=== PATIENT | female | born 1990 | race Caucasian/White ===

== ENCOUNTER 2024-11-09 18:26 | Inpatient (IN) | payer MEDICAID, OTHER ==
[2024-11-09] MEDS ORDERED: IBUPROFEN 600 MG TAB PO PRN (22:15)
[2024-11-09] MEDS ORDERED: HALOPERIDOL LACTATE 5 MG/ML 1 ML VIAL IM PRN (22:15)
[2024-11-09] MEDS ORDERED: LORazepam 2 MG/ML INJ IM PRN (22:15)
[2024-11-09] MEDS ORDERED: MAGNESIUM HYDROXIDE 2,400 MG/30 ML CUP PO PRN (22:15)
[2024-11-10] MEDS: NICOTINE 14MG/24HR PATCH TRANSDERM SCH (06:43)
[2024-11-10] MEDS: NICOTINE GUM (POLACRILEX) 2 MG GUM BUCCAL PRN (08:46)
[2024-11-10 12:22] LABS: Basophils # (A) 0.03 10*3/uL (0.00-0.10); Basophils % (A) 0.5 %; HCT 35.7 % (37.2-46.3); Lymphocytes # (A) 1.47 10*3/uL (0.90-5.00); Lymphocytes % (A) 23.6 %; MCH 25.3 pg (27.0-32.0); MCHC 30.8 g/dL (32.0-37.0); MCV 82.1 fL (80.0-97.0); Mean Platelet Volume 9.2 fL (9.5-12.2); Monocytes # (A) 0.26 10*3/uL (0.20-1.00); Monocytes % (A) 4.2 %; Neutrophils # (A) 4.44 10*3/uL (1.80-7.70); Neutrophils % (A) 71.4 %; Platelet Count 377 10*3/uL (140-440); RBC 4.35 10*6/uL (4.10-5.20); RDW 15.3 % (11.5-14.5); WBC 6.22 10*3/uL (4.50-10.00)
[2024-11-10 12:42] LABS: ALT 12 U/L (4-34); AST 17 U/L (14-36); African American GFR (CKD) >90 (>60 ml/min/1.73 sqM); Albumin 4.5 g/dL (3.5-5.0); Alkaline Phosphatase 51 U/L (38-126); Anion Gap 7 mmol/L; Blood Urea Nitrogen 18 mg/dL (7-17); Calcium 9.7 mg/dL (8.4-10.2); Carbon Dioxide 27 mmol/L (22-30); Chloride 104 mmol/L (98-107); Glucose 109 mg/dL (74-99); Non-African American GFR(CKD) >90 (>60 ml/min/1.73 sqM); Potassium 4.4 mmol/L (3.5-5.1); Sodium 138 mmol/L (137-145); Total Bilirubin 0.5 mg/dL (0.2-1.3); Total Protein 7.7 g/dL (6.3-8.2)
[2024-11-10] MEDS: MAG HYDROX/AL HYDROX/SIMETH 355 ML BOTTLE PO PRN (15:14)
[2024-11-10] MEDS: ACETAMINOPHEN TAB 325 MG TAB PO PRN (15:14)
[2024-11-10] MEDS: DULoxetine HCL 30 MG CAPSULE.DR PO SCH (15:14)
--- NOTE | 2024-11-10 15:17 | P.HP ---
Psychiatric H&P - . H&P Date: 11/10/24 History & Physical: Allergies Allergy/AdvReac Type Severity Reaction Status Date / Time No Known Allergies Allergy Verified 11/09/24 22:15 Vital Signs Temp 97.8 F 11/10/24 09:00 Pulse 120 H 11/10/24 09:00 Resp 16 11/10/24 09:00 BP 103/75 11/10/24 09:00 Pulse Ox 100 11/10/24 09:00 FiO2 Intake & Output 11/09/24 11/10/24 11/10/24 18:59 06:59 18:59 Weight 86.908 kg Laboratory Last Values WBC 6.22 10*3/uL (4.50-10.00) 11/10/24 12:01 RBC 4.35 10*6/uL (4.10-5.20) 11/10/24 12:01 Hgb 11.0 g/dL (12.0-15.0) L 11/10/24 12:01 Hct 35.7 % (37.2-46.3) L 11/10/24 12:01 MCV 82.1 fL (80.0-97.0) 11/10/24 12:01 MCH 25.3 pg (27.0-32.0) L 11/10/24 12:01 MCHC 30.8 g/dL (32.0-37.0) L 11/10/24 12:01 Plt Count 377 10*3/uL (140-440) 11/10/24 12:01 MPV 9.2 fL (9.5-12.2) L 11/10/24 12:01 Immature Gran % (Auto) 0.3 % 11/10/24 12:01 Neutrophils % 71.4 % 11/10/24 12:01 Lymphocytes % 23.6 % 11/10/24 12:01 Monocytes % 4.2 % 11/10/24 12:01 Eosinophils % 0.0 % 11/10/24 12:01 Basophils % 0.5 % 11/10/24 12:01 Immature Gran # 0.02 10*3/uL (0.00-0.04) 11/10/24 12:01 Neutrophils # 4.44 10*3/uL (1.80-7.70) 11/10/24 12:01 Lymphocytes # 1.47 10*3/uL (0.90-5.00) 11/10/24 12:01 Monocytes # 0.26 10*3/uL (0.20-1.00) 11/10/24 12:01 Eosinophils # 0.00 10*3/uL (0.04-0.35) L 11/10/24 12:01 Basophils # 0.03 10*3/uL (0.00-0.10) 11/10/24 12:01 Sodium 138 mmol/L (137-145) 11/10/24 12:01 Potassium 4.4 mmol/L (3.5-5.1) 11/10/24 12:01 Chloride 104 mmol/L (98-107) 11/10/24 12:01 Carbon Dioxide 27 mmol/L (22-30) 11/10/24 12:01 Anion Gap 7 mmol/L 11/10/24 12:01 BUN 18 mg/dL (7-17) H 11/10/24 12:01 Creatinine 0.63 mg/dL (0.52-1.04) 11/10/24 12:01 Est GFR (CKD-EPI)AfAm >90 (>60 ml/min/1.73 sqM) 11/10/24 12:01 Est GFR (CKD-EPI)NonAf >90 (>60 ml/min/1.73 sqM) 11/10/24 12:01 Glucose 109 mg/dL (74-99) H 11/10/24 12:01 Calcium 9.7 mg/dL (8.4-10.2) 11/10/24 12:01 Total Bilirubin 0.5 mg/dL (0.2-1.3) 11/10/24 12:01 AST 17 U/L (14-36) 11/10/24 12:01 ALT 12 U/L (4-34) 11/10/24 12:01 Alkaline Phosphatase 51 U/L (38-126) 11/10/24 12:01 Total Protein 7.7 g/dL (6.3-8.2) 11/10/24 12:01 Albumin 4.5 g/dL (3.5-5.0) 11/10/24 12:01 TSH 0.384 mIU/L (0.465-4.680) L 11/10/24 12:01 11/10/24 14:08 IDENTIFYING DATA: Patient is a 34-year-old female, she is single, living with her boyfriend in a camper. She has 1 kid, she is unemployed HPI: Patient presented to the hospital as a transfer from [facility] and as per transfer note by [facility] "Patient presented to [facility] related to suicidal ideation and self harm. Patient verbalizes suicidal ideation with no plan and auditory hallucinations telling her to harm herself. Patient has superficial lacerations to bilateral wrists." Patient was admitted involuntarily to the mental health unit however was agreeable to sign voluntary. She claims that she has been struggling with an increase in depression and also anxiety. Claims that she does have some panic attacks at times and high levels of anxiety during the day. Claims that she has been feeling suicidal thoughts for the past few days, no specific plan. States that she believes that she has racing thoughts and is "overthinking" things. Claims that she has a lot going for her in her life however was stating that she is not able to see her kids much which is affecting her and also feels that she has a "unstable place to live". She claims that she [facility] while she was feeling and was brought to the hospital for evaluation. Patient claims that his sleep and appetite have been poor.. Patient denies any current suicidal or homicidal ideations intent or plan. At this time patient denies any auditory or visual hallucinations. Patient denies any flight of ideas racing thoughts and increased in goal directed behavior. Patient admits to using cannabis regularly, also claims that she uses kratom 2 to 3 capsules a day for the past couple of weeks. States that she also vapes nicotine, denies any other recreational drug use. PAST PSYCHIATRIC HISTORY: Patient has a history of depression and anxiety and also ADHD. Claims that she was previously on Zoloft and Prozac several years ago. Claims that she was admitted to [facility] about 5 years ago. Patient denies any psychiatric outpatient follow-up. Claims that she overdosed about 5 years ago on pills. PMH: as per ER note ALLERGIES: as per EMR CHEMICAL DEPENDENCY HISTORY: as per HPI FAMILY PSYCHIATRIC/SUBSTANCE USE HISTORY: Denies SOCIAL HISTORY: Patient was born and raised in [place] and then spent most of her life in [place]. 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 Claims that she did go to [facility] in the past for theft. States that she is single she lives with her boyfriend in a camper. She has 1 kid she is unemployed currently. MENTAL STATUS EXAM: General Appearance: Patient appears to be tall, wearing glasses, stated age is alert, directable, and attempts to cooperate. Patient appears to have fair hygiene and grooming. Behavior: Patient is seated without any agitated behavior. Attempts to cooperate Speech: Patient's speech is fluent and nonpressured. Mood/Affect: Patient reports their mood is depressed, affect is congruent and constricted. Suicidality/Homicidality: Patient denies having any homicidal ideation intent or plan. Denies any suicidal ideations intent or plan Perceptions: Patient denies any visual hallucinations and denies any auditory hallucinations Though content/process: There is no evidence of any delusional thought content and thought process is linear and goal-directed. Memory and concentration: AOX3, grossly intact for the purposes of this session. Can spell "WORLD" backwards Judgment and insight: Poor STRENGTHS/WEAKNESSES: strength is that patient is resilient. Weakness is that patient has poor judgment and is impulsive INTELLECT: Average IMPRESSIONS: Major depressive disorder, without psychotic features Generalized anxiety disorder with panic attacks Cannabis use disorder Nicotine dependence PLAN: -Patient is admitted under voluntary status to MHU for stabilization of psychiatric symptoms and safety. Patient has signed adult voluntary form and has signed medication consent and is placed in patient's chart. -Medications : Cymbalta 30 mg daily for mood/anxiety, trazodone 50 mg nightly for insomnia/mood. -Ativan and Haldol PRN for agitation/aggression Patient states they do not want rehab and wish to cut back subtance use on their own -Patient was informed of the risks, benefits and side effects of the medications and patient verbally consented to taking the medications. Patient signed med consent form and was placed in chart. Patient was offered medication information and accepted it -Internal Medicine consult to perform medical evaluation and physical. -NRT -nicotine patch + gum -SW on board for discharge planning. Encourage patient to participate in groups to work on coping skills. 11/10/24 15:12 11/10/24 15:17
[2024-11-10] MEDS: LORazepam 1 MG TAB PO PRN (17:50)
[2024-11-10] MEDS: traZODone HCL 50 MG TAB PO SCH (21:40)
[2024-11-11 00:27] LABS: LDL Cholesterol,Calculated 113.9 mg/dL (0.0-131.0); VLDL Calculation 7.78 mg/dL (5.00-40.00)
--- NOTE | 2024-11-11 12:30 | P.PN ---
Progress Note - Text Progress Note Date: 11/11/24 Interval History: Patient was seen today for psychiatric follow up. Patient was seen wandering the hallways earlier after group. Agreeable to speak with investment underwriter in the office today. He states that she is doing a bit better with regards to her anxiety and also her mood, was agreeable to have her Cymbalta increased. States that she did have a bit concentrating last night agreeable to have her trazodone increased. States that she is feeling a bit more future oriented today, has been trying to participate more in groups and in the milieu. Claims that she has been eating a bit better. At this time she is denying any suicidal homicidal ideations intent or plan denying any auditory or visual hallucinations. MENTAL STATUS EXAM: General Appearance: Patient appears to be tall, wearing glasses, stated age is alert, directable, and attempts to cooperate. Patient appears to have fair hygi sebastián and grooming. Behavior: Patient is seated without any agitated behavior. Attempts to cooperate, improving mildly Speech: Patient's speech is fluent and nonpressured. Mood/Affect: Patient reports their mood is depressed and anxiety, improving mildly, affect is congruent and constricted. Improving mildly Suicidality/Homicidality: Patient denies having any homicidal ideation intent or plan. Denies any suicidal ideations intent or plan Perceptions: Patient denies any visual hallucinations and denies any auditory hallucinations Though content/process: There is no evidence of any delusional thought content and thought process is linear and goal-directed. Memory and concentration: AOX3, grossly intact for the purposes of this session Judgment and insight: Poor, improving mildly IMPRESSIONS: Major depressive disorder, without psychotic features Generalized anxiety disorder with panic attacks Cannabis use disorder Nicotine dependence PLAN: -Patient is admitted under voluntary status to MHU for stabilization of psychiatric symptoms and safety. Patient has signed adult voluntary form and has signed medication consent and is placed in patient's chart. -Medications : Increase Cymbalta 60 mg daily for mood/anxiety, increase trazodone 100 mg nightly for insomnia/mood. -Ativan and Haldol PRN for agitation/aggression -NRT -nicotine patch + gum -SW on board for discharge planning. Encourage patient to participate in groups to work on coping skills. Hopeful for discharge Tuesday versus Tuesday if patient is improving.
[2024-11-11] MEDS: traZODone HCL 100 MG TAB PO SCH (20:35)
[2024-11-12] MEDS: DULoxetine HCL 60 MG CAPSULE.DR PO SCH (07:57)
[2024-11-12 09:39] VITALS: RESP 16
--- NOTE | 2024-11-12 11:27 | P.PN ---
Progress Note - Text Progress Note Date: 11/12/24 Interval History: Patient was seen today for psychiatric follow up. Patient was seen taking part in group today. Agreeable to speak with screenplay writer in the office today, appears to have an improvement in her affect. She claims that she is worried about her living situation and claims that they have to find a new place for her in their camper when she returns home, was asking about a potential discharge either today or tomorrow. Claims that she is try to go to groups participate more on the unit. Claims that she feels the medications have been helping significantly her her anxiety and mood have been improving. Claims that she slept about 8 to 10 hours last night, has been eating well. States that she is feeling a bit more future oriented today, has been trying to participate more in groups and in the milieu. At this time she is denying any suicidal homicidal ideations intent or plan denying any auditory or visual hallucinations. MENTAL STATUS EXAM: General Appearance: Patient appears to be tall, wearing glasses, stated age is alert, directable, and attempts to cooperate. Patient appears to have fair hygiene and grooming. Behavior: Patient is seated without any agitated behavior. Attempts to cooperate, improving mildly Speech: Patient's speech is fluent and nonpressured. Mood/Affect: Patient reports their mood is improving mildly, affect is congruent and constricted. Improving mildly Suicidality/Homicidality: Patient denies having any homicidal ideation intent or plan. Denies any suicidal ideations intent or plan Perceptions: Patient denies any visual hallucinations and denies any auditory hallucinations Though content/process: There is no evidence of any delusional thought content and thought process is linear and goal-directed. Memory and concentration: AOX3, grossly intact for the purposes of this session Judgment and insight: improving mildly IMPRESSIONS: Major depressive disorder, without psychotic features Generalized anxiety disorder with panic attacks Cannabis use disorder Nicotine dependence PLAN: -Patient is admitted under voluntary status to MHU for stabilization of psychiatric symptoms and safety. Patient has signed adult voluntary form and has signed medication consent and is placed in patient's chart. -Medications : Cymbalta 60 mg daily for mood/anxiety, trazodone 100 mg nightly for insomnia/mood. -Ativan and Haldol PRN for agitation/aggression -NRT -nicotine patch + gum -SW on board for discharge planning. Encourage patient to participate in groups to work on coping skills. Hopeful for discharge Tuesday if patient is improving psychiatrically.
[2024-11-12] MEDS: haloperidoL 5 MG TAB PO PRN (11:33)
--- NOTE | 2024-11-12 21:31 | P.CONS ---
History of Present Illness - Reason for Consult Consult date: 11/12/24 medical co-management - Chief Complaint depression - History of Present Illness Ms. Diaz is a 34 YO F with past medical history of suicidal ideation. The patient reports that she was admitted from [facility] for suicidal ideation. She reports that she has no prior past medical history. She reports that she does not use any recreational drugs. It appears that she was previously on Zoloft and Prozac several years prior. She is currently seen in room 307. She currently denies any complaints and is sitting in bed and is cooperative. Review of Systems Pertinent positives and negatives as discussed in HPI, a complete review of systems was performed and all other systems are negative. Past Medical History Past Medical History: No Reported History History of Any Multi-Drug Resistant Organisms: None Reported Past Surgical History: Section, Tonsillectomy Past Anesthesia/Blood Transfusion Reactions: No Reported Reaction Smoking Status: Vaper Medications and Allergies Allergies Allergy/AdvReac Type Severity Reaction Status Date / Time No Known Allergies Allergy Verified 11/09/24 22:15 Physical Exam Vitals: Vital Signs Temp Pulse Resp BP Pulse Ox 11/12/24 09:00 97.4 F L 106 H 16 110/73 100 11/11/24 22:39 97.8 F 104 H 18 128/89 100 General: non toxic, no distress, appears older than stated age Derm: warm, dry Head: atraumatic, normocephalic, symmetric Eyes: EOMI, no lid lag, anicteric sclera, pupils equal round reactive to light ENT: Nose and ears atraumatic, no thrush, no pharyngeal erythema Neck: No thyromegaly, no cervical lymphadenopathy, trachea midline, supple Mouth: no lip lesion, mucus membranes moist Cardiovascular: S1S2 reg, no murmur, positive posterior tibial pulse bilateral, no edema, capillary refill less than 2 seconds Lungs: clear to ascultation bilateral, no ronchi, no rales, no wheeze, no accessory muscle use Abdominal: soft, nontender to palpation, no guarding, no appreciable organomegaly, normal bowel sounds Ext: no gross muscle atrophy, muscle strength muscle strength 5 out of 5 in all 4 extremities, no contractures Neuro: CN II-XI grossly intact, light touch intact all 4 extremities, finger to nose within normal limits, Psych: Alert, oriented, appropriate affect Results CBC & Chem 7: 11/10/24 12:01 11/10/24 12:01 Assessment and Plan Assessment: #) major depressive disorder-has been as per behavioral health team, currently on duloxetine 60 mg daily #) Vaping use, recommend cessation, nicotine patch while inpatient #) Cannabis use, recommend cessation, check urine drug screen Lab work reviewed hemoglobin noted to be 11 lipid profile revealing HDL of 81 and LDL of 113. TSH 0.384 and we will check a free T4 Time with Patient: Less than 30
[2024-11-13 08:07] VITALS: BP 120/90; PULSE 122; TEMP 97.8
--- NOTE | 2024-11-13 10:41 | P.DS ---
Providers Date of admission: 11/09/24 20:48 Expected date of discharge: 11/13/24 Attending physician: Steffen Navarro MD Consults: 11/09/24 22:15 Consult Physician Routine Consulting Provider: Susie Quiles Consult Reason/Comments: History and Physical, New Admission Do you want consulting provider notified?: Yes Primary care physician: Stated None - Discharge Diagnosis(es) (1) Major depressive disorder without psychotic features Current Visit: Yes Status: Acute Priority: High (2) Generalized anxiety disorder with panic attacks Current Visit: Yes Status: Acute Priority: High (3) Cannabis use disorder Current Visit: Yes Status: Acute Priority: Medium (4) Nicotine dependence Current Visit: Yes Status: Acute Priority: Low Hospital Course: Admission HPI: Admission note was completed by senior technical writer "Patient is a 34-year-old female, she is single, living with her boyfriend in a camper. She has 1 kid, she is unemployed. Patient presented to the hospital as a transfer from [facility] and as per transfer note by EPS "Patient presented to [facility] related to suicidal ideation and self harm. Patient verbalizes suicidal ideation with no plan and auditory hallucinations telling her to harm herself. Patient has superficial lacerations to bilateral wrists." Patient was admitted involuntarily to the mental health unit however was agreeable to sign voluntary. She claims that she has been struggling with an increase in depression and also anxiety. Claims that she does have some panic attacks at times and high levels of anxiety during the day. Claims that she has been feeling suicidal thoughts for the past few days, no specific plan. States that she believes that she has racing thoughts and is "overthinking" things. Claims that she has a lot going for her in her life however was stating that she is not able to see her kids much which is affecting her and also feels that she has a "unstable place to live". She claims that she told a counselor at [facility] while she was feeling and was brought to the hospital for evaluation. Patient claims that his sleep and appetite have been poor.. Patient denies any current suicidal or homicidal ideations intent or plan. At this time patient denies any auditory or visual hallucinations. Patient denies any flight of ideas racing thoughts and increased in goal directed behavior. Patient admits to using cannabis regularly, also claims that she uses kratom 2 to 3 capsules a day for the past couple of weeks. States that she also vapes nicotine, denies any other recreational drug use." Hospital course: Upon admission to the unit patient was directable and agreeable to commence treatment and signed adult voluntary form. Patient was initially tearful, depressed anxious however with time and treatment patient got along well with other patients on the unit and followed unit protocol. Patient was compliant with the medications and denied any side effects throughout hospital course. Patient was started on Cymbalta increased to dose of 60 mg daily for mood/anxiety, trazodone increased to 100 mg nightly for insomnia/mood. Patient spoke of her stressors and engaged in therapy both group/activity therapy. Patient was also seen by medical team for history and physical exam. Throughout the course of the hospitalization patient gradually improved with regards to mood, anxiety, sleep and became more future oriented with improved insight and judgment. On the day of discharge patient denied any suicidal or homicidal ideations intent or plan denied any auditory or visual hallucinations. Patient endorsed wanting to live for their health and family. The patient denied any access to guns or weapons. Patient denied any paranoia and did not endorse any delusions. Patient does have a significant history of substance abuse and was counseled on abstaining from all substances including alcohol and marijuana. Patient elected to do outpatient substance use treatment program through their outpatient provider. Patient was also counseled on the medications and need for regular compliance and was encouraged to follow-up with their outpatient appointment for mental health and also for primary care. Prior to discharge a family meeting will be arranged by sr. social media & mobile manager to answer any questions and ensure safety upon discharge incuding making sure that guns/weapons are either removed from the home or locked away. Mental status exam: General Appearance: Patient appears to be wearing glasses, stated age is alert, pleasant, and cooperative. Patient is in no acute distress and has improved hygiene and grooming Behavior: Patient is calmly seated without any agitated behavior. Speech: Patient's speech is fluent and nonpressured. Mood/Affect: Patient reports their mood is "good", affect is congruent and euthymic. Suicidality/Homicidality: Patient denies having any suicidal or homicidal ideation intent or plan. Perceptions: Patient denies any auditory or visual hallucinations. Though content/process: There is no evidence of any delusional thought content and thought process is linear and goal-directed. More future oriented Memory and concentration: AOX3, grossly intact for the purposes of this session. Can spell "WORLD" backwards correctly. Judgment and insight: improved with guarded prognosis Impression: Major depressive disorder without psychotic features Generalized anxiety disorder with panic attacks Cannabis use disorder Nicotine dependence Plan: -Continue with discharge today as patient has improved and stabilized psychiat rically and is not currently an imminent threat to themself and/or others. -Continue medications: Cymbalta 60 mg daily for mood/anxiety, trazodone 100 mg nightly for insomnia/mood, Requip 0.25 mg nightly as needed for restlessness -Patient was counseled on the need for medication compliance and appropriate follow-up at mental health and also primary care for medical issues. Patient verbalized understanding and agreed. -Social work to help coordinate patients discharge today. also to ensure safe home environment that guns/weapons are either removed from the home or locked away. Social work also to arrange for patients follow up appointments for psychiatric care along with follow up with primary care provider. -Patient counseled on abstaining from recreational drugs and marijuana and alcoh ol. Was informed/educated on the adverse effects on their physical and mental health. Patient verbally agreed and understood. -Patient was instructed to return to the hospital or seek immediate medical care if their psychiatric or medical symptoms do worsen or reoccur. Allergies Allergy/AdvReac Type Severity Reaction Status Date / Time No Known Allergies Allergy Verified 11/09/24 22:15 Laboratory Results WBC 6.22 10*3/uL (4.50-10.00) 11/10/24 12:01 RBC 4.35 10*6/uL (4.10-5.20) 11/10/24 12:01 Hgb 11.0 g/dL (12.0-15.0) L 11/10/24 12:01 Hct 35.7 % (37.2-46.3) L 11/10/24 12:01 MCV 82.1 fL (80.0-97.0) 11/10/24 12:01 MCH 25.3 pg (27.0-32.0) L 11/10/24 12:01 MCHC 30.8 g/dL (32.0-37.0) L 11/10/24 12:01 Plt Count 377 10*3/uL (140-440) 11/10/24 12:01 MPV 9.2 fL (9.5-12.2) L 11/10/24 12:01 Immature Gran % (Auto) 0.3 % 11/10/24 12:01 Neutrophils % 71.4 % 11/10/24 12:01 Lymphocytes % 23.6 % 11/10/24 12:01 Monocytes % 4.2 % 11/10/24 12:01 Eosinophils % 0.0 % 11/10/24 12:01 Basophils % 0.5 % 11/10/24 12:01 Immature Gran # 0.02 10*3/uL (0.00-0.04) 11/10/24 12:01 Neutrophils # 4.44 10*3/uL (1.80-7.70) 11/10/24 12:01 Lymphocytes # 1.47 10*3/uL (0.90-5.00) 11/10/24 12:01 Monocytes # 0.26 10*3/uL (0.20-1.00) 11/10/24 12:01 Eosinophils # 0.00 10*3/uL (0.04-0.35) L 11/10/24 12:01 Basophils # 0.03 10*3/uL (0.00-0.10) 11/10/24 12:01 Sodium 138 mmol/L (137-145) 11/10/24 12:01 Potassium 4.4 mmol/L (3.5-5.1) 11/10/24 12:01 Chloride 104 mmol/L (98-107) 11/10/24 12:01 Carbon Dioxide 27 mmol/L (22-30) 11/10/24 12:01 Anion Gap 7 mmol/L 11/10/24 12:01 BUN 18 mg/dL (7-17) H 11/10/24 12:01 Creatinine 0.63 mg/dL (0.52-1.04) 11/10/24 12:01 Est GFR (CKD-EPI)AfAm >90 (>60 ml/min/1.73 sqM) 11/10/24 12:01 Est GFR (CKD-EPI)NonAf >90 (>60 ml/min/1.73 sqM) 11/10/24 12:01 Glucose 109 mg/dL (74-99) H 11/10/24 12:[address] Glu mg/dL 114 mg/dL 11/10/24 12:01 Hemoglobin A1c 5.6 % (<=6.0) 11/10/24 12:01 Calcium 9.7 mg/dL (8.4-10.2) 11/10/24 12:01 Total Bilirubin 0.5 mg/dL (0.2-1.3) 11/10/24 12:01 AST 17 U/L (14-36) 11/10/24 12:01 ALT 12 U/L (4-34) 11/10/24 12:01 Alkaline Phosphatase 51 U/L (38-126) 11/10/24 12:01 Total Protein 7.7 g/dL (6.3-8.2) 11/10/24 12:01 Albumin 4.5 g/dL (3.5-5.0) 11/10/24 12:01 Triglycerides 38.90 mg/dL (0.00-149.00) 11/10/24 12:01 Cholesterol 203.00 mg/dL (0.00-200.00) H 11/10/24 12:01 LDL Cholesterol, Calc 113.9 mg/dL (0.0-131.0) 11/10/24 12:01 VLDL Cholesterol, Calc 7.78 mg/dL (5.00-40.00) 11/10/24 12:01 HDL Cholesterol 81.30 mg/dL (40.00-60.00) H 11/10/24 12:01 Cholesterol/HDL Ratio 2.50 Ratio 11/10/24 12:01 TSH 0.384 mIU/L (0.465-4.680) L 11/10/24 12:01 Vital Signs Temp 97.8 F 11/13/24 08:06 Pulse 122 H 11/13/24 08:06 Resp 16 11/12/24 09:00 BP 120/90 11/13/24 08:06 Pulse Ox 96 11/13/24 08:06 FiO2 Patient Condition at Discharge: Stable Plan - Discharge Summary Discharge Rx Participant: No New Discharge Prescriptions: New DULoxetine HCL [Cymbalta] 60 mg PO DAILY 30 Days #30 cap traZODone HCL [Desyrel] 100 mg PO HS 30 Days #30 tab Nicotine 14Mg/24Hr Patch [Habitrol] 1 patch TRANSDERM DAILY 14 Days #14 patch rOPINIRole HCL [Requip] 0.25 mg PO HS PRN 30 Days #30 tablet PRN Reason: restlessness Acetaminophen Tab [Tylenol] 650 mg PO Q4HR PRN tab PRN Reason: Mild Pain (Scale 1 To 3) Discharge Medication List Acetaminophen Tab [Tylenol] 650 mg PO Q4HR PRN tab 11/13/24 [Rx] DULoxetine HCL [Cymbalta] 60 mg PO DAILY 30 Days #30 cap 11/13/24 [Rx] Nicotine 14Mg/24Hr Patch [Habitrol] 1 patch TRANSDERM DAILY 14 Days #14 patch 11/13/24 [Rx] rOPINIRole HCL [Requip] 0.25 mg PO HS PRN 30 Days #30 tablet 11/13/24 [Rx] traZODone HCL [Desyrel] 100 mg PO HS 30 Days #30 tab 11/13/24 [Rx] Follow up Appointment(s)/Referral(s): Psychological, List [Other] - 11/27/24 3:00 pm (11/27 @ 15:00 for paperowork 11/27 @ 15:45 appt. Earliest available pt was d/c from [facility]. will need to go to [place] office and transfer back. ) [facility] [NON-STAFF] - 1 Week Patient Instructions/Handouts: How to Stop Smoking (DC), Depression (DC) Activity/Diet/Wound Care/Special Instructions: Avoid the use of street drugs and alcohol. Take all medications as prescribed. When you are in need of refills on your medications, please contact your medical provider and/or outpatient psychiatrist/provider to have this done. Please go to your scheduled outpatient appointment for aftercare treatment. If symptoms return or become worse, call the crisis line at and/or go to the nearest emergency room for evaluation. National Suicide Hotline [address] confidentiality statement: "The information contained in this communication, including attachments, is confidential, may be privileged, and is intended only for the use of the named recipient(s). Unauthorized use, disclosure, forwarding or copying is strictly prohibited and may be unlawful. If you have received this communication in error, please notify me IMMEDIATELY at the phone number or pager listed above. Discharge Disposition: HOME SELF-CARE
== END 2024-11-13 13:10 | disposition home or self-care (01) | DRG 751 ==
LOC: 3MHU 20:48
PROVIDERS: ADMIT Psychiatry & Neurology Psychiatry; ATTEND Psychiatry & Neurology Psychiatry
DX: F32.9 Major depressive disorder, single episode, unspecified (principal); S61.512A Laceration without foreign body of left wrist, initial encounter; S61.511A Laceration without foreign body of right wrist, initial encounter; F17.290 Nicotine dependence, other tobacco product, uncomplicated; F12.10 Cannabis abuse, uncomplicated; F41.0 Panic disorder [episodic paroxysmal anxiety]; F41.1 Generalized anxiety disorder; R44.0 Auditory hallucinations; X78.9XXA Intentional self-harm by unspecified sharp object, initial encounter; Z56.0 Unemployment, unspecified
CPT/HCPCS: 80053; 80061; 83036; 84436; 84443; 85025

== ENCOUNTER 2024-12-03 22:04 | Inpatient (IN) | payer MEDICAID, OTHER ==
[2024-12-03] MEDS ORDERED: LORazepam 2 MG/ML INJ IM PRN (22:09)
[2024-12-03] MEDS ORDERED: HALOPERIDOL LACTATE 5 MG/ML 1 ML VIAL IM PRN (22:09)
[2024-12-03] MEDS ORDERED: MAGNESIUM HYDROXIDE 2,400 MG/30 ML CUP PO PRN (22:09)
[2024-12-04] MEDS: LORazepam 1 MG TAB PO PRN (02:13)
[2024-12-04] MEDS: traZODone HCL 50 MG TAB PO PRN (02:13)
[2024-12-04] MEDS: haloperidoL 5 MG TAB PO PRN (02:13)
[2024-12-04 07:50] LABS: ALT 13 U/L (4-34); AST 15 U/L (14-36); African American GFR (CKD) >90 (>60 ml/min/1.73 sqM); Albumin 4.6 g/dL (3.5-5.0); Alkaline Phosphatase 60 U/L (38-126); Anion Gap 6 mmol/L; Basophils # (A) 0.05 10*3/uL (0.00-0.10); Basophils % (A) 0.7 %; Blood Urea Nitrogen 10 mg/dL (7-17); Calcium 9.6 mg/dL (8.4-10.2); Carbon Dioxide 27 mmol/L (22-30); Chloride 105 mmol/L (98-107); Eosinophils # (A) 0.03 10*3/uL (0.04-0.35); Eosinophils % (A) 0.4 %; Glucose 105 mg/dL (74-99); HCT 38.6 % (37.2-46.3); HGB 11.9 g/dL (12.0-15.0); Lymphocytes # (A) 2.16 10*3/uL (0.90-5.00); Lymphocytes % (A) 31.2 %; MCH 25.2 pg (27.0-32.0); MCHC 30.8 g/dL (32.0-37.0); MCV 81.8 fL (80.0-97.0); Mean Platelet Volume 9.5 fL (9.5-12.2); Monocytes # (A) 0.42 10*3/uL (0.20-1.00); Monocytes % (A) 6.1 %; Neutrophils # (A) 4.26 10*3/uL (1.80-7.70); Neutrophils % (A) 61.5 %; Non-African American GFR(CKD) >90 (>60 ml/min/1.73 sqM); Platelet Count 437 10*3/uL (140-440); Potassium 4.2 mmol/L (3.5-5.1); RBC 4.72 10*6/uL (4.10-5.20); RDW 15.6 % (11.5-14.5); Sodium 138 mmol/L (137-145); Total Bilirubin 0.5 mg/dL (0.2-1.3); Total Protein 7.7 g/dL (6.3-8.2); WBC 6.93 10*3/uL (4.50-10.00)
[2024-12-04] MEDS: NICOTINE 14MG/24HR PATCH TRANSDERM SCH (08:52)
[2024-12-04] MEDS: ESCITALOPRAM 5 MG TAB PO SCH (12:21)
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
[2024-12-04] MEDS: MAG HYDROX/AL HYDROX/SIMETH 355 ML BOTTLE PO PRN (14:02)
[2024-12-04 15:18] LABS: Chol/HDL Ratio 2.69 Ratio; LDL Cholesterol,Calculated 112.9 mg/dL (0.0-131.0)
[2024-12-04] MEDS: IBUPROFEN 600 MG TAB PO PRN (16:59)
[2024-12-04] MEDS: hydrOXYzine pamoate 25 MG CAP PO SCH (21:14)
[2024-12-05] MEDS: busPIRone HCl 10 MG TAB PO SCH (10:34)
[2024-12-05] MEDS: clonazePAM 0.5 MG TAB PO PRN (10:34)
--- NOTE | 2024-12-05 12:21 | P.PN ---
Progress Note - Text Progress Note Date: 12/05/24 Interval History: Patient was seen wandering the hallways and was directable and agreeable to sp raymond with typewriter assembler in the office. Patient appeared anxious, reporting panic like symptoms and states that Ativan has not been effective. She rates both anxiety and depression 10/10 in severity today. She is also reporting suicidal ideations today, no plan or intent. She states sleeping is okay, denying any nightmares. She does report loose stools with the initiation of Lexapro. She has been receiving both as needed Haldol/Ativan for agitation/anxiety. She reports auditory hallucinations today, negative in nature. At this time patient denies any homicidal ideations, intent or plan. Patient denies any visual hallucinations and denies any paranoia or delusions. Patient has been compliant with meds. Mental Status Exam: General Appearance: Patient appears to be stated age is alert, directable, and cooperative. Behavior: Patient is calmly seated without any agitated behavior. Speech: Patient's speech is fluent and nonpressured. Mood/Affect: Mood is improving mildly, affect is congruent and anxious. Suicidality/Homicidality: Patient denies having any homicidal ideation intent or plan. Patient reports suicidal ideations Perceptions: Patient denies any visual hallucinations however she reports auditory hallucinations, not appearing internally preoccupied during encounter Though content/process: There is no evidence of any delusional thought content and thought process is linear and goal-directed. Memory and concentration: AOX3, grossly intact for the purposes of this session Judgment and insight: Improving mildly Assessment Major depressive disorder, recurrent, moderate PTSD Generalized anxiety disorder with panic attacks Nicotine dependence Plan: -Patient continues to meet criteria for inpatient psychiatric admission for symptom stabilization and safety. Patient has signed adult voluntary form and medication consent and was placed in patient's chart. -Medications: Continue Lexapro 5 mg daily for depression/anxiety (will look into increasing this in the upcoming days pending stability in adverse effects), continue Vistaril 50 mg at bedtime for insomnia, start BuSpar 10 mg twice daily for anxiety -When necessary Klonopin and Haldol for agitation/aggression. -Labs: Hemoglobin mildly low at 12, other lab values grossly WNL -NRT - nicotine patch -SW on board for discharge planning. Encouraged the patient to participate in milieu.
--- NOTE | 2024-12-06 07:45 | P.PN ---
Progress Note - Text Progress Note Date: 12/05/24 Patient refused medical evaluation at this time
--- NOTE | 2024-12-06 12:15 | P.PN ---
Progress Note - Text Progress Note Date: 12/06/24 Interval History: Patient was seen wandering the hallways and was directable and agreeable to sp raymond with fiction writer in the office. She continues to express high anxiety,no improvements from the previous day. She does not notice any benefit with Ativan or Klonopin, was encouraged to also utilize coping skills for this. She states her loose stools have worsened and was agreeable with changing Lexapro to Zoloft. She reports dissociation, feeling as though she is in a dream. She denied any nightmares, states sleep is okay. She has been attempting to go to groups. She talked about her past head injury at the age of 7 when she fell off of a horse and required ICU admission due to a brain bleed. She continues to struggle with mood lability, easily triggered that impacts her day today. She continues to express suicidal ideations at this time patient denies any homicidal ideations, intent or plan. Patient denies any auditory, visual hallucinations and denies any paranoia or delusions. Patient has been compliant with meds. Mental Status Exam: General Appearance: Patient appears to be stated age is alert, directable, and cooperative. Behavior: Patient is calmly seated without any agitated behavior. Speech: Patient's speech is fluent and nonpressured. Mood/Affect: Mood is "anxious", affect is congruent and constricted. Suicidality/Homicidality: Patient denies having any homicidal ideation intent or plan. Patient reports suicidal ideations Perceptions: Patient denies any visual hallucinations and denies any auditory hallucinations Though content/process: There is no evidence of any delusional thought content and thought process is linear and goal-directed. Memory and concentration: AOX3, grossly intact for the purposes of this session Judgment and insight: Improving mildly Assessment Major depressive disorder, recurrent, moderate PTSD Generalized anxiety disorder with panic attacks Nicotine dependence Plan: -Patient continues to meet criteria for inpatient psychiatric admission for symptom stabilization and safety. Patient has signed adult voluntary form and m edication consent and was placed in patient's chart. -Medications: Increase BuSpar to 10 mg 3 times daily for anxiety, start Seroquel 50 mg at bedtime for mood stabilization/sleep, discontinue Lexapro and start Zoloft 50 mg daily tomorrow for depression/anxiety, continue Vistaril 50 mg at bedtime for insomnia -When necessary Klonopin and Haldol for agitation/aggression. -Labs: Reviewed -NRT - nicotine patch -SW on board for discharge planning. Encouraged the patient to participate in milieu.
[2024-12-06 12:33] LABS: Appearance,Urine Cloudy (Clear); Bacteria,Urine Occasional /hpf; Bilirubin,Urine Negative (Negative); Blood,Urine Large (Negative); Color,Urine Light Red; Glucose,Urine (UA) Negative (Negative); Ketones,Urine Negative (Negative); Leukocyte Esterase,Urine Large (Negative); Mucus,Urine Moderate /hpf; Nitrite,Urine Positive (Negative); PH, Urine 5.5 (5.0-8.0); Protein,Urine 1+ (Negative); RBC,Urine >182 /hpf (0-5); Specific Gravity,Urine 1.021 (1.001-1.035); Squamous Epithelial Cell,Urine 9 /hpf (0-4); Urobilinogen,Urine <2.0 mg/dL (<2.0); WBC,Urine 64 /hpf (0-5)
[2024-12-06] MEDS: busPIRone HCl 10 MG TAB PO SCH (17:02)
[2024-12-06] MEDS: NICOTINE GUM (POLACRILEX) 2 MG GUM BUCCAL PRN (17:45)
[2024-12-06 19:32] LABS: Urine Alcohol Negative (Negative)
[2024-12-06 19:33] LABS: Urine Barbiturate Negative (Negative); Urine Cocaine Negative (Negative); Urine Methadone Negative (Negative); Urine Opiates Negative (Negative); Urine Phencyclidine Negative (Negative)
[2024-12-06] MEDS: QUEtiapine 50 MG TAB PO SCH (20:41)
[2024-12-07] MEDS: ACETAMINOPHEN TAB 325 MG TAB PO PRN (06:46)
[2024-12-07] MEDS: SERTRALINE 50 MG TAB PO SCH (09:00)
--- NOTE | 2024-12-07 10:36 | P.PN ---
Progress Note - Text Progress Note Date: 12/07/24 Interval History: Patient was seen wandering the hallways and was directable and agreeable to sp raymond with food writer in the office. Patient reports feeling better, states feeling "more like myself". She reports improvement in the loose stools, decrease in her anxiety and sleeping better. She no longer feels the dissociation symptoms, unclear if this is due to past trauma versus side effect to Lexapro. At this time patient denies any suicidal or homicidal ideations, intent or plan. Patient denies any auditory, visual hallucinations and denies any paranoia or delusions. Patient denies any side effects from the medications and has been compliant with meds. Mental Status Exam: General Appearance: Patient appears to be stated age is alert, directable, and cooperative. Behavior: Patient is calmly seated without any agitated behavior. Speech: Patient's speech is fluent and nonpressured. Mood/Affect: Mood is improving mildly, affect is congruent and less anxious. Suicidality/Homicidality: Patient denies having any suicidal or homicidal ideation intent or plan. Perceptions: Patient denies any visual hallucinations and denies any auditory hallucinations Though content/process: There is no evidence of any delusional thought content and thought process is linear and goal-directed. Memory and concentration: AOX3, grossly intact for the purposes of this session Judgment and insight: Improving mildly Assessment Major depressive disorder, recurrent, moderate PTSD Generalized anxiety disorder with panic attacks Nicotine dependence Plan: -Patient continues to meet criteria for inpatient psychiatric admission for symptom stabilization and safety. Patient has signed adult voluntary form and medication consent and was placed in patient's chart. -Medications: Start Zoloft 50 mg daily today for depression/anxiety, continue BuSpar 10 mg 3 times daily for anxiety, Seroquel 50 mg at bedtime for mood stabilization/sleep, Vistaril 50 mg at bedtime for insomnia -When necessary Klonopin and Haldol for agitation/aggression. -Labs: Reviewed -NRT - nicotine patch -SW on board for discharge planning. Encouraged the patient to participate in milieu. Anticipate discharge home with boyfriend on Tuesday
--- NOTE | 2024-12-08 10:53 | P.PN ---
Progress Note - Text Progress Note Date: 12/08/24 Interval History: Patient was seen wandering the hallways and was directable and agreeable to sp raymond with scientific writer in the office. Speaking with patient she notes things are going "good". She continues to feel like she is recovering and feeling like her old self. She does note that she struggled with sleep last night and was tossing and turning. She notes that she struggles falling asleep sometimes due to fear of having nightmares. She notes that she does have disassociated feelings but only sometimes. She rates her depression 3/10 and her anxiety 4/10 with 10 being worst. She denies any ongoing suicidal thoughts. She feels her energy, appetite and concentration are returned to baseline. She denies any side effects with the recently started Zoloft. Mental Status Exam: General Appearance: Patient appears to be stated age is alert, directable, and cooperative. Behavior: Patient is calmly seated without any agitated behavior. Speech: Patient's speech is fluent and nonpressured. Mood/Affect: Mood is improving mildly, affect is congruent and constricted. Suicidality/Homicidality: Patient denies having any suicidal or homicidal ideation intent or plan. Perceptions: Patient denies any visual hallucinations and denies any auditory hallucinations Though content/process: There is no evidence of any delusional thought content and thought process is linear and goal-directed. Memory and concentration: AOX3, grossly intact for the purposes of this session Judgment and insight: Improving mildly Assessment Major depressive disorder, recurrent, moderate PTSD Generalized anxiety disorder with panic attacks Nicotine dependence Plan: -Patient continues to meet criteria for inpatient psychiatric admission for symptom stabilization and safety. Patient has signed adult voluntary form and medication consent and was placed in patient's chart. -Medications: Continue Zoloft 50 mg daily today for depression/anxiety, continue BuSpar 10 mg 3 times daily for anxiety, Seroquel 50 mg at bedtime for mood stabilization/sleep, Vistaril 50 mg at bedtime for insomnia -When necessary Klonopin and Haldol for agitation/aggression. -Labs: Reviewed -NRT - nicotine patch -SW on board for discharge planning. Encouraged the patient to participate in milieu. Anticipate discharge home with boyfriend on Tuesday
[2024-12-09 09:03] VITALS: RESP 16
--- NOTE | 2024-12-09 09:33 | P.PN ---
Progress Note - Text Progress Note Date: 12/09/24 Interval History: * Patient was seen wandering the hallways and was directable and agreeable to s peak with policy writer sales in the office. The patient is presenting today stating that she feels "good". She notes that her sleep has gotten better from yesterday but she had weird dreams. She notes that she did not have any disassociative feelings yesterday. She notes that she rates her depression as 4/10 and her anxiety 5/10 with 10 being worst (previous depression 3/10, anxiety 4/10 at). She notes that it is hard to gauge these numbers and does note that she is feeling better than yesterday.. At this time patient denies any suicidal or homical ideations, intent or plan. Patient denies any auditory, visual hallucinations and denies any paranoia or delusions. Patient denies any side effects from the medications and has been compliant with meds. Mental Status Exam: General Appearance: Patient appears to be stated age is alert, directable, and cooperative. Behavior: Patient is calmly seated without any agitated behavior. Speech: Patient's speech is fluent and nonpressured. Mood/Affect: Mood is improving mildly, affect is congruent and constricted. Suicidality/Homicidality: Patient denies having any suicidal or homicidal ideation intent or plan. Perceptions: Patient denies any visual hallucinations and denies any auditory hallucinations Though content/process: There is no evidence of any delusional thought content and thought process is linear and goal-directed. Memory and concentration: AOX3, grossly intact for the purposes of this session Judgment and insight: Improving mildly Assessment Major depressive disorder, recurrent, moderate PTSD Generalized anxiety disorder with panic attacks Nicotine dependence Plan: -Patient continues to meet criteria for inpatient psychiatric admission for symptom stabilization and safety. Patient has signed adult voluntary form and medication consent and was placed in patient's chart. -Medications: Continue Zoloft 50 mg daily today for depression/anxiety, continue BuSpar 10 mg 3 times daily for anxiety, Seroquel 50 mg at bedtime for mood stabilization/sleep, Vistaril 50 mg at bedtime for insomnia -When necessary Klonopin and Haldol for agitation/aggression. -Labs: Reviewed -NRT - nicotine patch -SW on board for discharge planning. Encouraged the patient to participate in milieu. Anticipate discharge home with boyfriend on Tuesday
[2024-12-10 08:22] VITALS: PULSE 113; TEMP 97.2
[2024-12-10 08:24] VITALS: BP 120/83
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
== END 2024-12-10 11:51 | disposition home or self-care (01) | DRG 751 ==
LOC: 3MHU 12-04 02:07
PROVIDERS: ADMIT Psychiatry & Neurology Psychiatry; ATTEND Psychiatry & Neurology Psychiatry
DX: F33.1 Major depressive disorder, recurrent, moderate (principal); R45.851 Suicidal ideations; F12.10 Cannabis abuse, uncomplicated; F43.10 Post-traumatic stress disorder, unspecified; F41.0 Panic disorder [episodic paroxysmal anxiety]; F41.1 Generalized anxiety disorder; G47.00 Insomnia, unspecified; F17.290 Nicotine dependence, other tobacco product, uncomplicated; Z79.899 Other long term (current) drug therapy; Z87.828 Personal history of other (healed) physical injury and trauma; Z56.0 Unemployment, unspecified; Z87.820 Personal history of traumatic brain injury
CPT/HCPCS: 80053; 80061; 80306; 81001; 81025; 83036; 84443; 85025